=== PATIENT | male | born 1950 | race American Indian/Alaskan Native ===

== ENCOUNTER 2016-12-11 09:43 | Outpatient (CLI) | payer MEDICARE, OTHER ==
[2016-12-11 10:55] LABS: Blood Urea Nitrogen 14 mg/dL (9-20)
--- NOTE | 2016-12-11 13:43 | Cat Scan Report ---
CT scan of abdomen and pelvis without IV contrast: History: Malignant neoplasm of prostate. Findings: This normal lung bases. No pleural or pericardial effusion. Normal liver spleen pancreas and gallbladder. Normal adrenals. 1.2 cm circumscribed hypodensity right kidney probably cyst. Normal left kidney. Normal bladder. Prostate measures 5 x 5.4 cm. Single calcification measuring 3 mm in diameter noted at the center of prostate. No free fluid. No free intraperitoneal air. No evidence of adenopathy. No evidence of appendicitis or diverticulitis. No bowel distention. No definite lytic or blastic lesion at the skeleton. Impression: Enlarged prostate. 1.2 cm hypodensity right kidney probably cysts.
--- NOTE | 2016-12-12 08:48 | Nuclear Medicine Report ---
Whole body bone scan: Examination performed at 25 mCi technetium 99 MDP. History: Malignant neoplasm of prostate. Findings: Uniform distribution of activity is noted the calvarium, cervical, thoracic and lumbar spine. Normal activity in ribs pelvis and hips. Normal activity kidneys and bladder. Normal activity extremities. Impression: Essentially negative bone scan.
== END 2016-12-11 09:44 | disposition home or self-care (01) ==
LOC: NM 09:43
PROVIDERS: ATTEND Urology
DX: C61 Malignant neoplasm of prostate (principal); N40.0 Benign prostatic hyperplasia without lower urinary tract symptoms; N42.89 Other specified disorders of prostate; M25.551 Pain in right hip; W19.XXXA Unspecified fall, initial encounter; Y93.89 Activity, other specified; Y92.89 Other specified places as the place of occurrence of the external cause; Y99.8 Other external cause status
CPT/HCPCS: 36415; 74176; 78306; 82565; 84520; A9503